=== PATIENT | male | born 1990 | race Caucasian/White ===

== ENCOUNTER 2017-03-12 16:03 | Emergency (ER) | payer MEDICAID ==
[~2017-03-12] VITALS: Ht 175.2 cm; Wt 65.8 kg
[~2017-03-12 16:03] MED LIST: 'CLONIDINE0.1 MG PO; AMOXICILLIN500 MG PO; AMOXIL500 MG PO; AUGMENTIN 875875 MG PO; BACTRIM DS 8001 TA1 PO; BACTROBAN22; BENZOYL PEROXIDE 5% TP; CEFADROXIL500 M1 PO; CIPRO500 MG PO; DOXYCYCLINE MO100 MG PO; IBU800 MG PO; MEDROL DOSEPAK4 MG PO; MOTRIN800 MG PO; NKHM; SEPTRA DS 800 M1 TAB PO; SUBOXONE 8 MG-1 EACH SL; TRAMADOL HCL50 MG PO; TYLENOL W/CODEI1 TA2 PO; VICODIN 5/500 505 MG PO; ZITHROMAX Z PA250 MG PO; ZYRTEC10 MG PO; [UNRECOGNIZED DRUG - OTHER] TP
== END 2017-03-12 16:18 | disposition home or self-care (01) ==
LOC: ED 16:03
DX: K08.89 Other specified disorders of teeth and supporting structures (principal); F19.10 Other psychoactive substance abuse, uncomplicated; F17.200 Nicotine dependence, unspecified, uncomplicated; Z88.1 Allergy status to other antibiotic agents; Z88.6 Allergy status to analgesic agent; Z88.8 Allergy status to other drugs, medicaments and biological substances

== ENCOUNTER 2017-05-10 06:58 | Emergency (ER) | payer OTHER ==
[~2017-05-10] VITALS: Ht 175.2 cm; Wt 61.2 kg
== END 2017-05-10 10:09 | disposition home or self-care (01) ==
LOC: ED 06:58
DX: G43.909 Migraine, unspecified, not intractable, without status migrainosus (principal); M43.6 Torticollis; F14.10 Cocaine abuse, uncomplicated; F12.10 Cannabis abuse, uncomplicated; F11.20 Opioid dependence, uncomplicated; F17.200 Nicotine dependence, unspecified, uncomplicated; Z88.1 Allergy status to other antibiotic agents; Z88.6 Allergy status to analgesic agent

== ENCOUNTER 2017-06-27 22:26 | Emergency (ER) | payer OTHER ==
[~2017-06-27] VITALS: Ht 175.2 cm; Wt 64.9 kg
[2017-06-27] MEDS ORDERED: CLINDAMYCIN HC300 MG PO (23:16)
[2017-06-27] MEDS ORDERED: Motrin,Rufen800 MG PO (23:16)
== END 2017-06-27 23:47 | disposition home or self-care (01) ==
LOC: ED 22:26
DX: K04.01 Reversible pulpitis (principal); F17.200 Nicotine dependence, unspecified, uncomplicated; F12.10 Cannabis abuse, uncomplicated; G43.909 Migraine, unspecified, not intractable, without status migrainosus; Z88.1 Allergy status to other antibiotic agents; Z88.6 Allergy status to analgesic agent; Z88.8 Allergy status to other drugs, medicaments and biological substances

== ENCOUNTER 2017-08-28 20:42 | Emergency (ER) | payer OTHER ==
[~2017-08-28] VITALS: Ht 172.7 cm; Wt 72.6 kg
[~2017-08-28 20:42] MED LIST changes: +CLINDAMYCIN HC300 MG PO; +Motrin,Rufen800 MG PO
[2017-08-28] MEDS ORDERED: ZOFRAN ODT4 MG SL (22:22)
[2017-08-28] MEDS ORDERED: IMITREX100 MG PO (22:22)
[2017-08-28] MEDS ORDERED: KETOROLAC10 MG PO (22:22)
== END 2017-08-28 23:27 | disposition home or self-care (01) ==
LOC: ED 20:42
DX: G43.909 Migraine, unspecified, not intractable, without status migrainosus (principal); F41.9 Anxiety disorder, unspecified; F14.10 Cocaine abuse, uncomplicated; F17.200 Nicotine dependence, unspecified, uncomplicated; Z88.1 Allergy status to other antibiotic agents; Z88.8 Allergy status to other drugs, medicaments and biological substances; Z79.899 Other long term (current) drug therapy

== ENCOUNTER 2018-02-08 09:46 | Emergency (ER) | payer OTHER ==
[~2018-02-08] VITALS: Ht 175.2 cm; Wt 65.8 kg
[~2018-02-08 09:46] MED LIST changes: +IMITREX100 MG PO; +KETOROLAC10 MG PO; +ZOFRAN ODT4 MG SL
[2018-02-08] MEDS ORDERED: Motrin,Rufen800 MG PO (09:55)
[2018-02-08] MEDS ORDERED: AMOXICILLIN500 M2 PO (09:55)
== END 2018-02-08 11:58 | disposition home or self-care (01) ==
LOC: ED 09:46
DX: K08.89 Other specified disorders of teeth and supporting structures (principal); F17.200 Nicotine dependence, unspecified, uncomplicated; Z79.899 Other long term (current) drug therapy; Z88.1 Allergy status to other antibiotic agents; Z88.6 Allergy status to analgesic agent; Z88.8 Allergy status to other drugs, medicaments and biological substances

== ENCOUNTER 2018-05-01 15:00 | Emergency (ER) | payer SELFPAY ==
[~2018-05-01] VITALS: Ht 175.2 cm; Wt 63.5 kg
[~2018-05-01 15:00] MED LIST changes: +AMOXICILLIN500 M2 PO
[2018-05-01] MEDS ORDERED: Motrin,Rufen800 MG PO (16:00)
[2018-05-01] MEDS ORDERED: ZITHROMAX250 MG PO (16:43)
[2018-05-18] MEDS ORDERED: ZOFRAN 4 MG ED2 TAB PO ×2 (07:40→08:09)
== END 2018-05-01 16:55 | disposition home or self-care (01) ==
LOC: ED 15:00
DX: S09.90XA Unspecified injury of head, initial encounter (principal); J40 Bronchitis, not specified as acute or chronic; S20.219A Contusion of unspecified front wall of thorax, initial encounter; S60.221A Contusion of right hand, initial encounter; F17.200 Nicotine dependence, unspecified, uncomplicated; Z88.1 Allergy status to other antibiotic agents; Z88.6 Allergy status to analgesic agent; V86.56XA Driver of dirt bike or motor/cross bike injured in nontraffic accident, initial encounter; Y93.I9 Activity, other involving external motion; Y92.488 Other paved roadways as the place of occurrence of the external cause; Y99.8 Other external cause status

== ENCOUNTER 2018-07-02 18:06 | Emergency (ER) | payer OTHER ==
[~2018-07-02] VITALS: Wt 67.6 kg
--- NOTE | ~2018-07-02 | EKG ---
[place], [place] ELECTROCARDIOGRAM REPORT NAME: RINKU FRANCO UNIT #: [id number] ROOM: DOCTOR: EPIPHANY DRAFT REPORT BIRTHDATE: [birth year] [facility] Test Date: 2018-07-02 Test Time: 19:14:40 Pat Name: RINKU FRANCO Department: ER Room: 18 Gender: M Envelope Adjuster: EKG.HI : 1990 Requested By: TIFF BUSH PA-C Order Number: [id number] Reading MD: Jon Flowers MD Measurements Intervals [place] Rate: 55 P: 31 ME: 176 QRS: 62 QRSD: 78 T: 61 QT: 406 QTc: 389 Interpretive Statements Sinus rhythm Probable left ventricular hypertrophy ST elev, probable normal early repol pattern Electronically Signed On 07-03-2018 8:43:57 PDT by Jon Flowers MD CM:EKGRPT:ELECTROCARDIOGRAM REPORT [id number] TIFF BUSH PA-C EPIPHANY DRAFT REPORT TIFF BUSH PA-C
[~2018-07-02 18:06] MED LIST changes: +ZITHROMAX250 MG PO; +ZOFRAN 4 MG ED2 TAB PO
[2018-07-02 19:01] LABS: BASO % 0.2 % (0.0-1.0); EOS # 0.2 10*3/uL (0.0-0.4); EOS % 2.2 % (1.0-4.0); HEMATOCRIT 38.9 % (42.0-52.0); HEMOGLOBIN 13.3 g/dl (14.0-18.0); LYMPH # 1.2 10*3/uL (1.3-4.4); LYMPH % 14.3 % (27.0-41.0); MEAN CELL VOLUME 90.3 fl (80.0-94.0); MEAN CORPUSCULAR HGB 30.9 pg (27.0-31.0); MEAN CORPUSCULAR HGB CONC 34.2 g/dl (33.0-37.0); MEAN PLATELET VOLUME 9.8 fl (9.6-12.3); MONO # 0.5 10*3/uL (0.1-1.0); MONO % 5.6 % (3.0-9.0); NEUT # 6.4 10*3/uL (2.3-7.9); NEUT % 77.5 % (47.0-73.0); PLATELET COUNT AUTOMATED 220 10*3/uL (130-400); RED BLOOD COUNT 4.31 10*6/uL (4.50-5.90); RED CELL DISTRI WIDTH 12.1 % (0-14.5); WHITE BLOOD COUNT 8.2 10*3/uL (4.8-10.8)
[2018-07-02 19:09] LABS: ACT PARTIAL THROMBO TIME 26.1 SECONDS (20.8-31.5); INTERNATIONAL NORM RATIO 0.9 (2.0-3.5)
[2018-07-02 19:20] LABS: ALBUMIN 3.9 gm/dl (3.1-4.5); ALKALINE PHOSPHATASE 73 U/L (45-117); BUN 11 mg/dl (7-24); CHLORIDE 104 mmol/L (98-107); CREATININE 0.98 mg/dL (0.70-1.30); POTASSIUM 4.3 mmol/L (3.5-5.1); SGOT/AST 24 IU/L (3-35); SGPT/ALT 27 U/L (12-78); SODIUM 139 mmol/L (136-145); TOTAL PROTEIN 7.5 gm/dL (6.4-8.2)
[2018-07-02 19:22] LABS: TROPONIN I < 0.015 ng/ml (<0.045)
[2018-07-02] MEDS ORDERED: ANAPROX DS550 MG PO (20:19)
== END 2018-07-02 19:33 | disposition home or self-care (01) ==
LOC: ED 18:06
PROVIDERS: Physician Assistant
DX: S29.011A Strain of muscle and tendon of front wall of thorax, initial encounter (principal); F17.200 Nicotine dependence, unspecified, uncomplicated; Z88.1 Allergy status to other antibiotic agents; Z88.6 Allergy status to analgesic agent; X58.XXXA Exposure to other specified factors, initial encounter; Y93.89 Activity, other specified; Y92.89 Other specified places as the place of occurrence of the external cause; Y99.8 Other external cause status

== ENCOUNTER 2018-10-15 05:17 | Emergency (ER) | payer OTHER ==
[~2018-10-15] VITALS: Ht 175.2 cm; Wt 63.5 kg
[~2018-10-15 05:17] MED LIST changes: +ANAPROX DS550 MG PO
== END 2018-10-15 08:01 | disposition home or self-care (01) ==
LOC: ED 05:17
DX: G43.909 Migraine, unspecified, not intractable, without status migrainosus (principal); Z88.6 Allergy status to analgesic agent; Z88.1 Allergy status to other antibiotic agents

== ENCOUNTER 2019-05-16 19:05 | Emergency (ER) | payer OTHER ==
[~2019-05-16] VITALS: Ht 175.2 cm; Wt 65.8 kg
== END 2019-05-16 20:55 | disposition home or self-care (01) ==
LOC: ED 19:05
DX: G43.909 Migraine, unspecified, not intractable, without status migrainosus (principal); F17.200 Nicotine dependence, unspecified, uncomplicated; Z88.1 Allergy status to other antibiotic agents; Z88.6 Allergy status to analgesic agent; Z88.8 Allergy status to other drugs, medicaments and biological substances

== ENCOUNTER 2019-05-29 16:05 | Inpatient (IN) | payer OTHER ==
[~2019-05-29] VITALS: Ht 175.3 cm; Wt 67.1 kg
--- NOTE | ~2019-05-29 | EKG ---
[place], [place] ELECTROCARDIOGRAM REPORT NAME: RINKU FRANCO UNIT #: [id number] ROOM: 502 DOCTOR: LAITH DRAFT REPORT BIRTHDATE: [birth year] [facility] Test Date: 2019-05-29 Test Time: 18:30:10 Pat Name: RINKU FRANCO Department: Room: [facility] 1 Gender: M [place] Man: : 1990 Requested By: JEANA HOGUE Order Number: [id number] Reading MD: Last Montes MD Measurements Intervals [place] Rate: 55 P: 4 AL: 170 QRS: 69 QRSD: 78 T: 61 QT: 389 QTc: 372 Interpretive Statements Sinus arrhythmia Probable left ventricular hypertrophy ST elev, probable normal early repol pattern Electronically Signed On 05-30-2019 8:02:13 PDT by Last Montes MD CM:EKGRPT:ELECTROCARDIOGRAM REPORT [id number] JEANA HOGUE EPIPHANY DRAFT REPORT JEANA HOGUE
[2019-05-29 17:05] VITALS: BP 127/84
--- NOTE | 2019-05-29 17:05 | NUR ---
Time: 1704 A 28 year old MALE admitted to under services of DIANE MATTHEW DO. Pt. arrived via ambulatory from [place]. Chief complaint: OPIATE WITHDRAWAL. BALJEET CACERES
--- NOTE | 2019-05-29 17:11 | NUR ---
PATIENT MEETS [facility]. CINA=19, CIWA(B)=28. PATIENT WANTS TO FOLLOW UP WITH [facility] FOR INTENSIVE OUTPATIENT TREATMENT. ROMERO KAPLAN B.A. AUTO DESIGN CHECKER
[2019-05-29 18:27] LABS: URINE AMPHETAMINES < 1000 (1000ng/ml); URINE BARBITURATES > 200 (200ng/ml); URINE BENZODIAZEPINES < 200 (200ng/ml); URINE CANNABINOIDS (THC) > 50 (50ng/ml); URINE COCAINE < 300 (300ng/ml); URINE METHADONE < 300 (300ng/ml); URINE OPIATES > 300 (300ng/ml)
[2019-05-29 18:29] LABS: URINE PHENCYCLIDINE < 25 (25ng/ml)
--- NOTE | 2019-05-29 18:30 | NUR ---
C/O NAUSEA, ANXIETY AND ABD CRAMPS. GIVEN ZOFRAN, VISTARIL AND BENTYL. WILL CONT TO MONITOR. CALL LIGHT IN REACH.
[2019-05-30] VITALS: BP 111/59
--- NOTE | 2019-05-30 03:58 | NUR ---
24 HR chart check completed.
--- NOTE | 2019-05-30 04:10 | NUR ---
PATIENT HAS COMPLAINT OF RESTLESS LEG AND MUSCLE ACHES. ROBAXIN AND REQUIP GIVEN. WILL MONITOR AND REASSESS.
--- NOTE | 2019-05-30 04:54 | NUR ---
PATIENT STATED HE IS VERY RESTLESS AND DRY HEAVING, AND HAVING SEVERE ANXIETY. ZOFRAN AND VISTARIL GIVEN. WILL MONITOR AND REASSESS.
--- NOTE | 2019-05-30 05:27 | NUR ---
PATIENTS FAMILY MEMBER CALLED IN AND STATED PATIENT HAS BEEN CALLING ALL NIGHT AND CANT SLEEP, IS RESTLESS AND THREATING TO SIGN OUT AMA. I ASSURED THE CALLER THAT I GAVE PATIENT EVERYTHING THAT WAS AVAILABLE.
[2019-05-30 06:39] LABS: BASO % 0.6 % (0.0-1.0); EOS # 0.2 10*3/uL (0.0-0.4); EOS % 2.1 % (1.0-4.0); HEMATOCRIT 40.5 % (42.0-52.0); HEMOGLOBIN 13.2 g/dl (14.0-18.0); LYMPH # 2.3 10*3/uL (1.3-4.4); LYMPH % 32.2 % (27.0-41.0); MEAN CELL VOLUME 94.8 fl (80.0-94.0); MEAN CORPUSCULAR HGB 30.9 pg (27.0-31.0); MEAN CORPUSCULAR HGB CONC 32.6 g/dl (33.0-37.0); MEAN PLATELET VOLUME 10.3 fl (9.6-12.3); MONO # 0.5 10*3/uL (0.1-1.0); MONO % 7.3 % (3.0-9.0); NEUT # 4.1 10*3/uL (2.3-7.9); NEUT % 57.7 % (47.0-73.0); PLATELET COUNT AUTOMATED 274 10*3/uL (130-400); RED BLOOD COUNT 4.27 10*6/uL (4.50-5.90); RED CELL DISTRI WIDTH 12.4 % (0-14.5); WHITE BLOOD COUNT 7.2 10*3/uL (4.8-10.8)
[2019-05-30 07:06] LABS: ALBUMIN 3.3 gm/dl (3.1-4.5); ALKALINE PHOSPHATASE 88 U/L (45-117); BUN 9 mg/dl (7-24); CHLORIDE 106 mmol/L (98-107); CREATININE 0.92 mg/dL (0.70-1.30); POTASSIUM 3.6 mmol/L (3.5-5.1); SGOT/AST 18 IU/L (3-35); SGPT/ALT 19 U/L (12-78); SODIUM 140 mmol/L (136-145); TOTAL PROTEIN 7.2 gm/dL (6.4-8.2)
[2019-05-30 08:00] VITALS: BP 110/74
--- NOTE | 2019-05-30 09:22 | NUR ---
PT VERY ANXIOUS, PACING HALLS, SAYING HE FEELS LIKE HE'S CRAWLING OUT OF HIS SKIN. SPOKE TO DR HOGUE AND HE SAID IT WAS OK TO GIVE A DOSE OF VISTARIL AT THIS TIME AND THAT THEY WILL BE UP TO SEE PATIENT SHORTLY.
--- NOTE | 2019-05-30 13:51 | NUR ---
IT WAS REPORTED THAT THE DIRECTOR OF FUNDRAISING WAS IN THE PATIENT'S ROOM AND SHE SEEN THE PATIENT WITH A NEEDLE IN HIS RIGHT POCKET. I QUESTIONED THE PATIENT IN WHICH HE DENIED THIS. I QUESTIONED THE DIRECTOR OF FUNDRAISING AND SHE SAID YES SHE SEEN IT AND IDENTIFIED THE PATIENT AND ROOM NUMBER. DR HOGUE WAS CALLED AND HE STATED IF WE SEARCH THE PATIENT AND FIND IT THEN HE NEEDS TO BE DISCHARGED. I SPOKE TO MY PRINTED CIRCUIT BOARD DESIGNER AND CALLED SECURITY. THE ROOM WAS SEARCHED. A SYRINGE WAS FOUND AND SECURITY CALLED THE POLICE. THE PATIENT WAS TAKEN INTO POLICE CUSTODY. [facility] NOTIFIED.
== END 2019-05-30 13:51 | disposition left against medical advice (07) | DRG 894 ==
LOC: 5E 16:05
PROVIDERS: Internal Medicine; ADMIT Internal Medicine
DX: F11.23 Opioid dependence with withdrawal (principal); F13.239 Sedative, hypnotic or anxiolytic dependence with withdrawal, unspecified; M79.89 Other specified soft tissue disorders; G25.81 Restless legs syndrome; F19.10 Other psychoactive substance abuse, uncomplicated; G43.909 Migraine, unspecified, not intractable, without status migrainosus; F17.210 Nicotine dependence, cigarettes, uncomplicated; Z71.6 Tobacco abuse counseling; Z88.8 Allergy status to other drugs, medicaments and biological substances; Z53.21 Procedure and treatment not carried out due to patient leaving prior to being seen by health care provider

== ENCOUNTER → 2019-12-07 | Outpatient (CLI) | payer OTHER ==
[2019-12-07 10:17] LABS: BASO % 0.4 % (0.0-1.0); EOS # 0.2 10*3/uL (0.0-0.4); EOS % 2.8 % (1.0-4.0); HEMATOCRIT 47.8 % (42.0-52.0); HEMOGLOBIN 15.8 g/dl (14.0-18.0); LYMPH # 1.7 10*3/uL (1.3-4.4); LYMPH % 23.1 % (27.0-41.0); MEAN CELL VOLUME 90.9 fl (80.0-94.0); MEAN CORPUSCULAR HGB CONC 33.1 g/dl (33.0-37.0); MEAN PLATELET VOLUME 10.7 fl (9.6-12.3); MONO # 0.5 10*3/uL (0.1-1.0); MONO % 7.2 % (3.0-9.0); NEUT # 4.9 10*3/uL (2.3-7.9); NEUT % 66.4 % (47.0-73.0); PLATELET COUNT AUTOMATED 226 10*3/uL (130-400); RED BLOOD COUNT 5.26 10*6/uL (4.50-5.90); RED CELL DISTRI WIDTH 13.6 % (0-14.5); WHITE BLOOD COUNT 7.4 10*3/uL (4.8-10.8)
[2019-12-07 10:41] LABS: ALBUMIN 3.8 gm/dl (3.1-4.5); ALKALINE PHOSPHATASE 124 U/L (45-117); BILIRUBIN, DIRECT 0.3 mg/dL (0.0-0.2); BUN 11 mg/dl (7-24); CHLORIDE 107 mmol/L (98-107); CREATININE 0.97 mg/dL (0.70-1.30); SGOT/AST 122 IU/L (3-35); SGPT/ALT 335 U/L (12-78); SODIUM 142 mmol/L (136-145); TOTAL PROTEIN 7.9 gm/dL (6.4-8.2)
[2019-12-07 10:48] LABS: THYROID STIM HORMONE (HS) 0.695 uIU/ml (0.358-4.75)
[2019-12-07 11:27] LABS: VITAMIN D, 25-HYDROXY 32.8 ng/mL (30-100)
[2019-12-07 11:39] LABS: BILIRUBIN NEGATIVE (NEGATIVE); CLARITY CLEAR (CLEAR); COLOR YELLOW (YELLOW); GLUCOSE NEGATIVE (NEGATIVE); KETONE NEGATIVE (NEGATIVE); SPECIFIC GRAVITY 1.025 (1.005-1.030)
[2019-12-07 11:41] LABS: BLOOD NEGATIVE (NEGATIVE); EPITHELIAL CELLS 0-2; LEUKO ESTERASE NEGATIVE (NEGATIVE); NITRITE NEGATIVE (NEGATIVE); PH 5.5 (5.0-9.0); UROBILINOGEN 0.2 E.U./dl (0.2-1.0); WBC 0-2 wbc/hpf (0-5)
[2019-12-07 11:42] LABS: BACTERIA TRACE; MUCOUS 1+
[2019-12-08 08:07] LABS: HEPATITIS B SURFACE AG Negative (Negative)
[2019-12-10 15:34] LABS: HEPATITIS C VIRUS ANTIBODY >11.0 s/co (0.0-0.9)
== END | disposition home or self-care (01) ==
LOC: LAB 09:39
PROVIDERS: Physician Assistant
DX: Z51.81 Encounter for therapeutic drug level monitoring (principal); Z79.899 Other long term (current) drug therapy

== ENCOUNTER → 2019-12-22 | Outpatient (CLI) | payer OTHER ==
[2019-12-23 15:07] LABS: HEP B CORE AB, IGM Negative (Negative); HEPATITIS B SURFACE AG Negative (Negative)
[2019-12-24 11:15] LABS: HEPATITIS C VIRUS ANTIBODY >11.0 s/co (0.0-0.9)
== END | disposition home or self-care (01) ==
LOC: LAB 13:00
PROVIDERS: Family Medicine
DX: B19.20 Unspecified viral hepatitis C without hepatic coma (principal); R74.8 Abnormal levels of other serum enzymes; M54.5 Low back pain

== ENCOUNTER 2020-03-03 13:55 | Emergency (ER) | payer OTHER ==
[~2020-03-03] VITALS: Ht 177.8 cm; Wt 68.0 kg
== END 2020-03-03 15:26 | disposition left against medical advice (07) ==
LOC: ED 13:55
DX: R07.81 Pleurodynia (principal); F17.200 Nicotine dependence, unspecified, uncomplicated; Z88.8 Allergy status to other drugs, medicaments and biological substances

== ENCOUNTER 2020-04-28 12:44 | Emergency (ER) | payer OTHER ==
[~2020-04-28] VITALS: Ht 177.8 cm; Wt 65.8 kg
[2020-04-28 13:27] LABS: BASO % 0.1 % (0.0-1.0); EOS # 0.1 10*3/uL (0.0-0.4); EOS % 0.7 % (1.0-4.0); HEMATOCRIT 42.8 % (42.0-52.0); LYMPH # 0.8 10*3/uL (1.3-4.4); LYMPH % 5.9 % (27.0-41.0); MEAN CELL VOLUME 93.4 fl (80.0-94.0); MEAN CORPUSCULAR HGB 32.3 pg (27.0-31.0); MEAN CORPUSCULAR HGB CONC 34.6 g/dl (33.0-37.0); MEAN PLATELET VOLUME 9.8 fl (9.6-12.3); MONO # 0.6 10*3/uL (0.1-1.0); MONO % 4.7 % (3.0-9.0); NEUT % 88.3 % (47.0-73.0); PLATELET COUNT AUTOMATED 193 10*3/uL (130-400); RED BLOOD COUNT 4.58 10*6/uL (4.50-5.90); RED CELL DISTRI WIDTH 12.8 % (0-14.5); WHITE BLOOD COUNT 13.6 10*3/uL (4.8-10.8)
[2020-04-28 13:39] LABS: INTERNATIONAL NORM RATIO 1.1 (2.0-3.5)
[2020-04-28 13:42] LABS: ALBUMIN 3.8 gm/dl (3.1-4.5); ALKALINE PHOSPHATASE 63 U/L (45-117); BUN 12 mg/dl (7-24); CHLORIDE 105 mmol/L (98-107); CREATININE 1.17 mg/dL (0.70-1.30); LIPASE 30 U/L (73-393); SGOT/AST 145 IU/L (3-35); SGPT/ALT 255 U/L (12-78); SODIUM 138 mmol/L (136-145); TOTAL PROTEIN 7.1 gm/dL (6.4-8.2)
[2020-04-28 14:09] LABS: TROPONIN I < 0.015 ng/ml (<0.045)
[2020-04-28] MEDS ORDERED: EC NAPROSYN500 MG PO (16:39)
== END 2020-04-28 16:50 | disposition home or self-care (01) ==
LOC: ED 12:44
PROVIDERS: Emergency Medicine
DX: Z03.818 Encounter for observation for suspected exposure to other biological agents ruled out (principal); R09.1 Pleurisy; R94.5 Abnormal results of liver function studies; R07.9 Chest pain, unspecified; F17.200 Nicotine dependence, unspecified, uncomplicated; Z88.1 Allergy status to other antibiotic agents

== ENCOUNTER → 2020-05-26 | Outpatient (CLI) | payer OTHER ==
[~2020-05-26] MED LIST changes: +EC NAPROSYN500 MG PO
[2020-05-26 11:50] LABS: ALBUMIN 3.6 gm/dl (3.1-4.5); BILIRUBIN, DIRECT 0.4 mg/dL (0.0-0.2); TOTAL PROTEIN 7.9 gm/dL (6.4-8.2)
== END | disposition home or self-care (01) ==
LOC: LAB 10:55
PROVIDERS: Physician Assistant
DX: Z51.81 Encounter for therapeutic drug level monitoring (principal); Z79.899 Other long term (current) drug therapy

== ENCOUNTER 2020-11-01 23:18 | Emergency (ER) | payer OTHER ==
[~2020-11-01] VITALS: Ht 175.2 cm; Wt 65.8 kg
[2020-11-02] MEDS ORDERED: ULTRAM50 MG PO (02:43)
== END 2020-11-02 02:58 | disposition home or self-care (01) ==
LOC: ED 23:18
DX: S92.154A Nondisplaced avulsion fracture (chip fracture) of right talus, initial encounter for closed fracture (principal); G43.909 Migraine, unspecified, not intractable, without status migrainosus; F17.200 Nicotine dependence, unspecified, uncomplicated; Z88.1 Allergy status to other antibiotic agents; W22.8XXA Striking against or struck by other objects, initial encounter; Y93.89 Activity, other specified; Y92.89 Other specified places as the place of occurrence of the external cause; Y99.8 Other external cause status

== ENCOUNTER → 2021-10-14 | Outpatient (CLI) | payer OTHER ==
[~2021-10-14] MED LIST changes: +ULTRAM50 MG PO
== END | disposition home or self-care (01) ==
LOC: COVID19 15:57
PROVIDERS: ATTEND Internal Medicine
DX: Z11.52 Encounter for screening for COVID-19 (principal)

== ENCOUNTER 2021-10-22 20:49 | Emergency (ER) | payer OTHER ==
[~2021-10-22] VITALS: Ht 175.2 cm; Wt 66.7 kg
== END 2021-10-23 00:23 | disposition home or self-care (01) ==
LOC: ED 20:49
DX: G43.909 Migraine, unspecified, not intractable, without status migrainosus (principal); Z88.1 Allergy status to other antibiotic agents

== ENCOUNTER 2022-01-08 23:53 | Emergency (ER) | payer OTHER ==
[~2022-01-08] VITALS: Ht 175.2 cm; Wt 72.6 kg
== END 2022-01-09 01:52 | disposition home or self-care (01) ==
LOC: ED 23:53
DX: R51.9 Headache, unspecified (principal); R11.2 Nausea with vomiting, unspecified; Z88.1 Allergy status to other antibiotic agents; Z87.891 Personal history of nicotine dependence; Z98.890 Other specified postprocedural states

== ENCOUNTER 2022-11-17 14:05 | Emergency (ER) | payer OTHER ==
[~2022-11-17] VITALS: Ht 175.2 cm; Wt 63.5 kg
[2022-11-17 14:55] LABS: BASO % 0.6 % (0.0-1.0); EOS # 0.2 10*3/uL (0.0-0.4); EOS % 3.9 % (1.0-4.0); HEMATOCRIT 41.1 % (42.0-52.0); LYMPH # 1.5 10*3/uL (1.3-4.4); LYMPH % 31.8 % (27.0-41.0); MEAN CELL VOLUME 90.7 fl (80.0-94.0); MEAN CORPUSCULAR HGB 30.9 pg (27.0-31.0); MEAN CORPUSCULAR HGB CONC 34.1 g/dl (33.0-37.0); MEAN PLATELET VOLUME 9.6 fl (9.6-12.3); MONO # 0.3 10*3/uL (0.1-1.0); NEUT # 2.7 10*3/uL (2.3-7.9); NEUT % 57.5 % (47.0-73.0); PLATELET COUNT AUTOMATED 183 10*3/uL (130-400); RED BLOOD COUNT 4.53 10*6/uL (4.50-5.90); RED CELL DISTRI WIDTH 12.3 % (0-14.5); WHITE BLOOD COUNT 4.7 10*3/uL (4.8-10.8)
[2022-11-17 15:11] LABS: ALKALINE PHOSPHATASE 70 U/L (46-116); BUN 11 mg/dl (9-23); CHLORIDE 107 mmol/L (98-107); POTASSIUM 3.7 mmol/L (3.4-5.1); SGPT/ALT 181 U/L (10-49); TOTAL PROTEIN 6.5 gm/dL (6.0-8.0)
== END 2022-11-18 12:24 | disposition short-term general hospital (02) ==
LOC: ED 14:05
PROVIDERS: Physician Assistant
DX: S02.85XA Fracture of orbit, unspecified, initial encounter for closed fracture (principal); Z88.1 Allergy status to other antibiotic agents; Z88.8 Allergy status to other drugs, medicaments and biological substances; Z87.891 Personal history of nicotine dependence; W18.39XA Other fall on same level, initial encounter; Y93.89 Activity, other specified; Y92.89 Other specified places as the place of occurrence of the external cause; Y99.8 Other external cause status

== ENCOUNTER 2023-06-13 10:22 | Inpatient (IN) | payer OTHER ==
[~2023-06-13] VITALS: Ht 175.2 cm; Wt 68.0 kg
[2023-06-13 10:31] VITALS: BP 125/80
[2023-06-13 11:02] LABS: BASO % 0.5 % (0.0-1.0); EOS # 0.4 10*3/uL (0.0-0.4); EOS % 6.4 % (1.0-4.0); HEMATOCRIT 42.1 % (42.0-52.0); LYMPH # 1.7 10*3/uL (1.3-4.4); LYMPH % 25.3 % (27.0-41.0); MEAN CELL VOLUME 91.7 fl (80.0-94.0); MEAN CORPUSCULAR HGB 31.8 pg (27.0-31.0); MEAN CORPUSCULAR HGB CONC 34.7 g/dl (33.0-37.0); MEAN PLATELET VOLUME 9.9 fl (9.6-12.3); MONO # 0.4 10*3/uL (0.1-1.0); MONO % 5.3 % (3.0-9.0); NEUT # 4.1 10*3/uL (2.3-7.9); NEUT % 62.3 % (47.0-73.0); PLATELET COUNT AUTOMATED 194 10*3/uL (130-400); RED BLOOD COUNT 4.59 10*6/uL (4.50-5.90); WHITE BLOOD COUNT 6.6 10*3/uL (4.8-10.8)
[2023-06-13 11:25] LABS: ALKALINE PHOSPHATASE 81 U/L (46-116); BUN 11 mg/dl (9-23); CHLORIDE 106 mmol/L (98-107); POTASSIUM 3.7 mmol/L (3.4-5.1); SGPT/ALT 135 U/L (10-49); TOTAL PROTEIN 6.6 gm/dL (6.0-8.0)
[2023-06-13 12:20] VITALS: BP 124/78
[2023-06-13 13:36] LABS: LIPASE 26 U/L (12-53)
[2023-06-13 13:37] LABS: ETHYL ALCOHOL < 3.0 mg/dl (<3)
[2023-06-13 14:14] VITALS: BP 124/72
[2023-06-13 16:12] VITALS: BP 124/70
[2023-06-13 18:20] VITALS: BP 120/70
== END 2023-06-13 19:30 | disposition left against medical advice (07) | DRG 770 ==
LOC: ED 10:22 → EDHOLD 11:35
PROVIDERS: Emergency Medicine; Family Medicine; ADMIT Internal Medicine; ATTEND Internal Medicine
DX: F19.10 Other psychoactive substance abuse, uncomplicated (principal); E83.51 Hypocalcemia; G43.909 Migraine, unspecified, not intractable, without status migrainosus; F17.210 Nicotine dependence, cigarettes, uncomplicated; G25.81 Restless legs syndrome; F13.10 Sedative, hypnotic or anxiolytic abuse, uncomplicated; B19.20 Unspecified viral hepatitis C without hepatic coma; D75.89 Other specified diseases of blood and blood-forming organs; Z88.1 Allergy status to other antibiotic agents; Z88.8 Allergy status to other drugs, medicaments and biological substances; Z83.3 Family history of diabetes mellitus; Z86.14 Personal history of Methicillin resistant Staphylococcus aureus infection; F11.90 Opioid use, unspecified, uncomplicated

== ENCOUNTER 2023-07-03 22:09 | Emergency (ER) | payer OTHER ==
[~2023-07-03] VITALS: Ht 175.2 cm; Wt 68.0 kg
[2023-07-03] MEDS ORDERED: PENICILLIN-VK500 MG PO (22:23)
== END 2023-07-03 22:41 | disposition home or self-care (01) ==
LOC: ED 22:09
DX: K08.89 Other specified disorders of teeth and supporting structures (principal); R51.9 Headache, unspecified; Z88.8 Allergy status to other drugs, medicaments and biological substances; Z98.890 Other specified postprocedural states; F17.200 Nicotine dependence, unspecified, uncomplicated; F19.10 Other psychoactive substance abuse, uncomplicated

== ENCOUNTER 2023-07-22 23:20 | Emergency (ER) | payer OTHER ==
[~2023-07-22] VITALS: Ht 175.2 cm; Wt 68.0 kg
[~2023-07-22 23:20] MED LIST changes: +PENICILLIN-VK500 MG PO
[2023-07-23] MEDS ORDERED: REGLAN10 M1 PO (01:59)
== END 2023-07-23 02:22 | disposition home or self-care (01) ==
LOC: ED 23:20
DX: G43.909 Migraine, unspecified, not intractable, without status migrainosus (principal); Z88.8 Allergy status to other drugs, medicaments and biological substances; Z98.890 Other specified postprocedural states; F19.10 Other psychoactive substance abuse, uncomplicated; F17.290 Nicotine dependence, other tobacco product, uncomplicated

== ENCOUNTER 2023-08-09 14:26 | Emergency (ER) | payer OTHER ==
[~2023-08-09] VITALS: Ht 175.2 cm; Wt 68.0 kg
[~2023-08-09 14:26] MED LIST changes: +REGLAN10 M1 PO
[2023-08-09] MEDS ORDERED: PENICILLIN VK500 MG PO (16:11)
[2023-08-09] MEDS ORDERED: PANTOPRAZOLE SO40 MG PO (16:11)
== END 2023-08-09 16:23 | disposition home or self-care (01) ==
LOC: ED 14:26
DX: K02.9 Dental caries, unspecified (principal); K21.9 Gastro-esophageal reflux disease without esophagitis; F17.200 Nicotine dependence, unspecified, uncomplicated; Z88.1 Allergy status to other antibiotic agents; Z79.2 Long term (current) use of antibiotics; Z79.899 Other long term (current) drug therapy

== ENCOUNTER 2023-09-09 20:33 | Emergency (ER) | payer OTHER ==
[~2023-09-09] VITALS: Ht 175.2 cm; Wt 68.9 kg
[~2023-09-09 20:33] MED LIST changes: +PANTOPRAZOLE SO40 MG PO; +PENICILLIN VK500 MG PO
== END 2023-09-10 00:17 | disposition home or self-care (01) ==
LOC: ED 20:33
DX: G43.909 Migraine, unspecified, not intractable, without status migrainosus (principal); R11.2 Nausea with vomiting, unspecified; Z88.8 Allergy status to other drugs, medicaments and biological substances; Z98.890 Other specified postprocedural states; F17.200 Nicotine dependence, unspecified, uncomplicated; F19.10 Other psychoactive substance abuse, uncomplicated; F14.90 Cocaine use, unspecified, uncomplicated; F12.90 Cannabis use, unspecified, uncomplicated

== ENCOUNTER → 2023-12-20 | Outpatient (CLI) | payer OTHER ==
[2023-12-20 15:43] LABS: BASO % 0.6 % (0.0-1.0); EOS # 0.7 10*3/uL (0.0-0.4); EOS % 12.3 % (1.0-4.0); HEMATOCRIT 39.3 % (42.0-52.0); LYMPH # 1.8 10*3/uL (1.3-4.4); LYMPH % 34.1 % (27.0-41.0); MEAN CELL VOLUME 91.8 fl (80.0-94.0); MEAN CORPUSCULAR HGB 31.1 pg (27.0-31.0); MEAN CORPUSCULAR HGB CONC 33.8 g/dl (33.0-37.0); MEAN PLATELET VOLUME 9.7 fl (9.6-12.3); MONO # 0.4 10*3/uL (0.1-1.0); MONO % 6.7 % (3.0-9.0); NEUT # 2.5 10*3/uL (2.3-7.9); NEUT % 46.1 % (47.0-73.0); PLATELET COUNT AUTOMATED 207 10*3/uL (130-400); RED BLOOD COUNT 4.28 10*6/uL (4.50-5.90); RED CELL DISTRI WIDTH 12.7 % (0-14.5); WHITE BLOOD COUNT 5.4 10*3/uL (4.8-10.8)
[2023-12-20 16:06] LABS: ALKALINE PHOSPHATASE 75 U/L (46-116); BUN 6 mg/dl (9-23); CHLORIDE 108 mmol/L (98-107); SGPT/ALT 46 U/L (5-49); TOTAL PROTEIN 6.6 gm/dL (6.0-8.0)
[2023-12-21 11:08] LABS: HBSAG Negative (Negative); HEP B CORE AB, IGM Negative (Negative)
[2023-12-21 19:07] LABS: HCV LOG10 6.636 (.); HEPATITIS C QNT 4330000 IU/mL (.)
[2023-12-21 20:07] LABS: HEPATITIS C QUANTITATION 5610000 IU/mL (.)
[2023-12-23 13:07] LABS: HEPATITIS C ANTIBODY Reactive (Non Reactive)
== END | disposition home or self-care (01) ==
LOC: LAB 15:17
PROVIDERS: Nurse Practitioner Family; ATTEND Family Medicine Addiction Medicine
DX: R06.02 Shortness of breath (principal); R06.2 Wheezing; B18.2 Chronic viral hepatitis C

== ENCOUNTER 2024-03-28 02:42 | Emergency (ER) | payer OTHER ==
[2024-03-28] MEDS ORDERED: Bacitracin Zinc 14 GM TUBE T ONE (03:45)
[2024-03-28] MEDS ORDERED: Ketorolac Tromethamine 30 MG/ML VIAL IM ONE (03:45)
[2024-03-28] MEDS ORDERED: Sulfamethoxazole/Trimethopri 1 TAB TAB PO ONE (03:50)
[2024-03-28] MEDS ORDERED: SEPTDS PO (04:03)
[2024-03-28] MEDS ORDERED: NAPROXEN250 MG PO (04:03)
== END 2024-03-28 04:36 | disposition home or self-care (01) ==
LOC: ED 02:42
DX: S01.312A Laceration without foreign body of left ear, initial encounter (principal); S80.12XA Contusion of left lower leg, initial encounter; F14.10 Cocaine abuse, uncomplicated; F13.10 Sedative, hypnotic or anxiolytic abuse, uncomplicated; Z88.8 Allergy status to other drugs, medicaments and biological substances; Z98.890 Other specified postprocedural states; W17.89XA Other fall from one level to another, initial encounter; Y93.89 Activity, other specified; Y92.89 Other specified places as the place of occurrence of the external cause; Y99.8 Other external cause status

== ENCOUNTER → 2024-08-28 | Day surgery (SDC) | payer OTHER ==
[~2024-08-28] MED LIST changes: +NAPROXEN250 MG PO; +SEPTDS PO
== END | disposition home or self-care (01) ==
LOC: SDC 08-24 08:45
PROVIDERS: ATTEND Dentist General Practice